=== PATIENT | female | born 1995 | race Two or more races ===

== ENCOUNTER 2019-08-10 20:46 | Emergency (ER) | payer SELFPAY ==
[~2019-08-10] VITALS: Ht 157.5 cm; Wt 63.0 kg
[2019-08-11 00:45] VITALS: BP 131/84
== END 2019-08-11 00:47 | disposition home or self-care (01) ==
LOC: ER 20:46
DX: R42 Dizziness and giddiness (principal); F41.9 Anxiety disorder, unspecified
CPT/HCPCS: 99283